=== PATIENT | male | born 1945 | race Caucasian/White ===

== ENCOUNTER 2017-03-08 18:56 | Emergency (ER) | payer OTHER ==
[~2017-03-08] VITALS: Ht 175.3 cm; Wt 75.0 kg
[2017-03-08 18:56] VITALS: Ht 175.3 cm; Wt 75.0 kg
[2017-03-08] MEDS ORDERED: LIDOCAINE 2% 20 ML UROJET SYRINGE MM ONE (19:00)
[2017-03-08] MEDS ORDERED: morphine 4 MG/ML VIAL IV STA (19:28)
[2017-03-08] MEDS ORDERED: ONDANSETRON 4 MG INJ IV STA (19:28)
[2017-03-08] MEDS ORDERED: SOD CHLORIDE 0.9% 1,000 ML IV STA (19:28)
[2017-03-08] MEDS ORDERED: TAMSULOSIN (SR) 0.4 MG CAP PO ONE (19:30)
--- NOTE | 2017-03-08 20:32 | RADRPT ---
PROCEDURE: CT Abdomen and pelvis without contrast. CLINICAL INDICATION: Abdominal pain TECHNIQUE: Routine CT scan of the abdomen and pelvis was performed on a high resolution multidetec tor scanner without intravenous contrast. One or more of the following dose reduction techniques wer e used: Automated exposure control; Adjustment of the mA and/or kV according to patient size; Use of iterative reconstruction technique. CTDI = 10 mGy. DLP = 570 mGy-cm. COMPARISON: None. FINDINGS: Lung bases: Peribronchial thickening is present suggestive of small airways disease. Suboptimally vi sualized suspected small infiltrates peripherally not well seen due to respiratory motion artifact. Liver: No focal lesions. Normal morphology and attenuation. Gallbladder: Normal appearance of the wall, no inflammatory changes. No gallstones. Normal appearance of the extrahepatic biliary tree. Pancreas: Normal morphology and attenuation. Spleen: Normal in size. Adrenal glands: Normal morphology and attenuation. Kidneys: Normal morphology. No hydronephrosis or renal calculi. Bladder: Decompressed by Stringer catheter. Prostate: Not enlarged, possibly resected. Free fluid: None. Alimentary tract: Gastric distension with fluid is present which may be secondary to gastroparesis. Moderate distension of the ascending and transverse colon up to the level of the splenic flexure whe re there appears to be possible wall thickening. Mild constipation of the remainder of the colon. Lymph nodes: Normal morphology and attenuation. Not pathologically enlarged by CT criteria. Arterial system: Normal caliber aorta. Venous system: No evidence of flow-limiting obstruction. Osseous structures: Severe degenerative changes L2-L3. Right hip arthroplasty is present. IMPRESSION: Moderate distension of the ascending and transverse colon up to the level of the splenic flexure whe re there appears to be possible wall thickening without inflammatory changes concerning for a partia lly obstructing malignancy. Gastric distension with fluid is present which may be secondary to gastroparesis. Peribronchial thickening is present suggestive of small airways disease. Suboptimally visualized orlando pected small infiltrates peripherally not well seen due to respiratory motion artifact. Chest x-ray recommended for further evaluation. RPTAT: AADD .Nelson Jones MD, MD Date Time Electronically viewed and signed by .Nelson Jones MD, MD on 03/08/2017 20:32 .Jamie
[2017-03-08] MEDS ORDERED: CIPR500T4 PO (20:56)
[2017-03-08] MEDS ORDERED: HYDR-902 PO (20:56)
[2017-03-08] MEDS ORDERED: METR500T PO (20:56)
[2017-03-08] MEDS ORDERED: TAMS-14 PO (20:56)
[2017-03-08] MEDS ORDERED: ONDA4TAB14 PO (20:56)
--- NOTE | 2017-03-08 20:58 | ERD ---
ER Documentation Chief Complaint Chief Complaint ABD PAIN HPI Patient is a 71-year-old male with diabetes who presents with abdominal pain. He says "I cannot urinate". He said that he has had this for the past few days. He was brought in by ambulance as a possible STEMI because the EKG that they did showed a possible STEMI although I did not see any sign of STEMI on their EKG. The patient has no history of prostate issues. He had a colonoscopy done on and a biopsy was taken and they are awaiting results. He has had no treatment as of yet. He denies chest pain. His pain is in the lower abdomen at the midline and he is tender to palpation. ROS All systems reviewed and are negative except as per history of present illness. Medications Home Meds Active Scripts Tamsulosin Hcl* (Flomax*) 0.4 Mg Cap.er.24h, 0.4 MG PO QPM, #30 CAP Prov:BAY ROSA MD 03/08/17 Metronidazole* (Flagyl*) 500 Mg Tablet, 500 MG PO TID for 7 Days, TAB Prov:BAY ROSA MD 03/08/17 Ciprofloxacin Hcl* (Ciprofloxacin Hcl*) 500 Mg Tablet, 500 MG PO BID for 7 Days , TAB Prov:BAY ROSA MD 03/08/17 Ondansetron (Ondansetron Odt) 4 Mg Tab.rapdis, 4 MG PO Q6H Y for NAUSEA AND/OR VOMITING, #10 TAB Prov:BAY ROSA MD 03/08/17 Hydrocodone/Acetaminophen ([place] 10-325 Tablet) 1 Each Tablet, 1 TAB PO Q6H Y for PAIN, #7 TAB Prov:BAY ROSA MD 03/08/17 PMhx/Soc History of Surgery: Yes (RIGHT HIP REPLACEMENT) Anesthesia Reaction: No Hx Neurological Disorder: No Hx Respiratory Disorders: No Hx Cardiac Disorders: No Hx Psychiatric Problems: No Hx Miscellaneous Medical Probl: Yes (IDDM) Hx Alcohol Use: Yes (DAILY) Hx Substance Use: No Hx Tobacco Use: No Smoking Status: Never smoker FmHx Family History: No diabetes Physical Exam Vitals Vital Signs Date Time Temp Pulse Resp B/P Pulse Ox O2 Delivery O2 Flow Rate FiO2 03/08/17 19:29 98.1 90 20 133/72 100 Nasal Cannula 2.0 03/08/17 18:56 98.2 99 18 139/67 100 Physical Exam Const: Moderate distress secondary to pain Head: Atraumatic Eyes: Normal Conjunctiva ENT: Normal External Ears, Nose and Mouth. Neck: Full range of motion..~ No meningismus. Resp: Clear to auscultation bilaterally Cardio: Regular rate and rhythm, no murmurs Abd: Soft, lower abdominal pain with tenderness to palpation Skin: No petechiae or rashes Back: No midline or flank tenderness Ext: No cyanosis, or edema Neur: Awake and alert Psych: Normal Mood and Affect Result Diagram: 03/08/17192903/08/171929 Results 24 hrs Laboratory Tests Test 03/08/17 19:20 03/08/17 19:30 Urine Color REX Urine Clarity SLIGHTLY CLOUDY Urine pH 7.0 Urine Specific [place] 1.024 Urine Ketones TRACEmg/dL Urine Nitrite NEGATIVEmg/dL Urine Bilirubin NEGATIVEmg/dL Urine Urobilinogen 2+mg/dL Urine Leukocyte Esterase NEGATIVELeu/ul Urine Microscopic RBC 1/HPF Urine Microscopic WBC 1/HPF Urine Amorphous Crystals FEW/HPF Urine Mucus FEW/HPF Urine Hemoglobin NEGATIVEmg/dL Urine Glucose 3+mg/dL Urine Total Protein 1+mg/dl White Blood Count 23.410^3/ul Red Blood Count 4.6510^6/ul Hemoglobin 14.7g/dl Hematocrit 40.8% Mean Corpuscular Volume 87.7fl Mean Corpuscular Hemoglobin 31.6pg Mean Corpuscular Hemoglobin Concent 36.0g/dl Red Cell Distribution Width 12.6% Platelet Count 78709^3/UL Mean Platelet Volume 10.1fl Neutrophils % 91.5% Lymphocytes % 3.5% Monocytes % 3.8% Eosinophils % 0.0% Basophils % 0.3% Nucleated Red Blood Cells % 0.0/100WBC Neutrophils # 21.410^3/ul Lymphocytes # 0.810^3/ul Monocytes # 0.910^3/ul Eosinophils # 0.010^3/ul Basophils # 0.110^3/ul Nucleated Red Blood Cells # 0.010^3/ul Sodium Level 138mmol/L Potassium Level 4.2mmol/L Chloride Level 99mmol/L Carbon Dioxide Level 23mmol/L Anion Gap 20 Blood Urea Nitrogen 31mg/dl Creatinine 0.88mg/dl Glucose Level 213mg/dl Calcium Level 10.3mg/dl Total Bilirubin 1.4mg/dl Direct Bilirubin 0.00mg/dl Indirect Bilirubin 1.4mg/dl Aspartate Amino Transf (AST/SGOT) 59IU/L Alanine Aminotransferase (ALT/SGPT) 39IU/L Alkaline Phosphatase 118IU/L Total Protein 7.6g/dl Albumin 4.6g/dl Globulin 3.00g/dl Albumin/Globulin Ratio 1.53 Lipase 19U/L Current Medications Medications (Trade) Dose Ordered Sig/Lynnette Route PRN Reason Start Time Stop Time Status Last Admin Dose Admin Lidocaine (Lidocaine 2% Urojet) 20 ml ONCE ONCE MM 03/08/17 19:00 03/08/17 19:01 DC 03/08/17 19:24 Tamsulosin HCl 0.4 mg 0.4 mg ONCE ONCE PO 03/08/17 19:30 03/08/17 19:31 DC 03/08/17 19:52 Sodium Chloride (NS) 1,000 ml @ 1,000 mls/hr Q1H STAT IV 03/08/17 19:28 03/08/17 20:27 DC 03/08/17 19:38 Morphine Sulfate (morphine) 4 mg ONCE STAT IV 03/08/17 19:28 03/08/17 19:29 DC 03/08/17 19:38 Ondansetron HCl (Zofran Inj) 4 mg ONCE STAT IV 03/08/17 19:28 03/08/17 19:29 DC 03/08/17 19:38 Procedures/MDM EKG read by me: Rate/Rhythm: Regular rate and rhythm at a rate of 99 Intervals: Normal Impression: No evidence of ischemia or arrhythmia PROCEDURE: CT Abdomen and pelvis without contrast. CLINICAL INDICATION: Abdominal pain TECHNIQUE: Routine CT scan of the abdomen and pelvis was performed on a high resolution multidetector scanner without intravenous contrast. One or more of the following dose reduction techniques were used: Automated exposure control; Adjustment of the mA and/or kV according to patient size; Use of iterative reconstruction technique. CTDI = 10 mGy. DLP = 570 mGy-cm. COMPARISON: None. FINDINGS: Lung bases: Peribronchial thickening is present suggestive of small airways disease. Suboptimally visualized suspected small infiltrates peripherally not well seen due to respiratory motion artifact. Liver: No focal lesions. Normal morphology and attenuation. Gallbladder: Normal appearance of the wall, no inflammatory changes. No gallstones. Normal appearance of the extrahepatic biliary tree. Pancreas: Normal morphology and attenuation. Spleen: Normal in size. Adrenal glands: Normal morphology and attenuation. Kidneys: Normal morphology. No hydronephrosis or renal calculi. Bladder: Decompressed by Stringer catheter. Prostate: Not enlarged, possibly resected. Free fluid: None. Alimentary tract: Gastric distension with fluid is present which may be secondary to gastroparesis. Moderate distension of the ascending and transverse colon up to the level of the splenic flexure where there appears to be possible wall thickening. Mild constipation of the remainder of the colon. Lymph nodes: Normal morphology and attenuation. Not pathologically enlarged by CT criteria. Arterial system: Normal caliber aorta. Venous system: No evidence of flow-limiting obstruction. Osseous structures: Severe degenerative changes L2-L3. Right hip arthroplasty is present. IMPRESSION: Moderate distension of the ascending and transverse colon up to the level of the splenic flexure where there appears to be possible wall thickening without inflammatory changes concerning for a partially obstructing malignancy. Gastric distension with fluid is present which may be secondary to gastroparesis. Peribronchial thickening is present suggestive of small airways disease. Suboptimally visualized suspected small infiltrates peripherally not well seen due to respiratory motion artifact. Chest x-ray recommended for further evaluation. RPTAT: AADD .Nelson Jones MD, Date Time Electronically viewed and signed by .Nelson Jones MD, on 03/08/2017 20:32 Patient is a 71-year-old male who presents with abdominal pain and urinary retention. I did EKG in the [facility] department which was negative for STEMI. I reviewed the environmental services specialist EKGs which also were normal and I do not see signs of STEMI and the patient denies chest pain. I doubt STEMI. The patient did have urinary retention so a Stringer catheter was placed. He feels better. However he still had persistent abdominal pain so I did laboratory studies and a CT scan of his abdomen and pelvis. He has an elevated white blood cell count 23.4. The patient has no sign of urinary infection. He told me that his colonoscopy showed diverticulitis but he did not get treated with antibiotics. Therefore I will treat him with Cipro, Flagyl, [place], Zofran, and Flomax. He will need follow-up with his primary doctor as well as Dr. Okeefe from urology or the urologist of his choice. He can follow-up within 24-48 hours. He can return for any worsening symptoms. Departure Diagnosis: Primary Impression: Urinary retention Additional Impressions: Diverticulitis Abdominal pain Abdominal location: lower abdomen, unspecified Qualified Code: R10.30 - Lower abdominal pain Condition: Fair Patient Instructions: Abdominal Pain, Diverticulitis, Urinary Retention, Male Referrals: LORI OKEEFE MD Additional Instructions: SPECIALIST: YOU HAVE A MEDICAL CONDITION WHICH REQUIRES YOU TO SEE A SPECIALIST WITHIN THE NEXT 1-2 DAYS. PLEASE FOLLOW UP WITH YOUR PRIMARY PHYSICIAN FOR REFFERAL.IF YOU DO NOT HAVE A PRIMARY CARE PHYSICIAN AND/OR YOU CAN NOT AFFORD TO SEE A PHYSICIAN THE FOLLOWING RESOURCES HAVE BEEN SUPPLIED TO YOU. IT IS YOUR RESPONSIBILITY TO BE SEEN BY THE SPECIALIST BAY ROSA MD Mar 08, 2017 20:58
[2017-03-08 22:19] VITALS: BP 116/56; PULSE 73; RESP 18; TEMP 98.5
== END 2017-03-08 22:20 | disposition home or self-care (01) ==
LOC: E/R 18:56
DX: K57.32 Diverticulitis of large intestine without perforation or abscess without bleeding (principal); R33.9 Retention of urine, unspecified; E11.9 Type 2 diabetes mellitus without complications; R07.9 Chest pain, unspecified; Z96.641 Presence of right artificial hip joint
CPT/HCPCS: 36415; 74176; 80053; 81001; 83690; 85025; 87086; 93005; 96374; 96375; 99285; J2270; J2405; J7030

== ENCOUNTER 2017-03-10 14:46 | Emergency (ER) | payer OTHER ==
[~2017-03-10] VITALS: Wt 68.2 kg
[~2017-03-10 14:46] MED LIST: CIPR500T4 PO; HYDR-902 PO; METR500T PO; ONDA4TAB14 PO; TAMS-14 PO
--- NOTE | 2017-03-10 16:17 | EN ---
Date/Time of Note Date/Time of Note DATE: 03/10/17 TIME: 16:15 ER Progress Note note-agree with detailed history and physical of mid-level provider. [id number]-old male presents with a history of urinary retention. Is here for catheter removal. Patient is being treated for diverticulitis with Cipro and Flagyl. Fever no vomiting pain improved. Objective-abdomen soft nontender without rebound. Assessment-diverticulitis partially treated. Urinary retention. The removed her patient was able to urinate. Plan-patient is to continue antibiotics and follow with primary doctor will be given return precautions regarding abdominal pain, urinary retention, and intra- abdominal infection. CATHLEEN CARNES MD Mar 10, 2017 16:16
[2017-03-10 16:46] LABS: ADD UMIC YES; UR ASCORBIC ACID 40 mg/dL (NEGATIVE); UR BACTERIA FEW /HPF (NONE SEEN); UR BILIRUBIN (Dip) NEGATIVE (NEGATIVE); UR BLOOD (Dip) 2+ mg/dL (NEGATIVE); UR CLARITY CLEAR (CLEAR); UR COLOR AMBER (YELLOW); UR GLUCOSE (Dip) NEGATIVE (NEGATIVE); UR KETONES (Dip) TRACE mg/dL (NEGATIVE); UR LEUKOCYTE ESTERASE (Dip) 2+ Leu/ul (NEGATIVE); UR MUCUS MANY /HPF (NONE SEEN); UR NITRITE (Dip) NEGATIVE (NEGATIVE); UR RBC > 182 /HPF (0-5); UR SPECIFIC GRAVITY (Dip) 1.029 (1.003-1.030); UR TOTAL PROTEIN (Dip) 2+ mg/dl (NEGATIVE); UR UROBILINOGEN (Dip) 1+ mg/dL (NEGATIVE)
[2017-03-10] MEDS ORDERED: CIPR500T4 PO (17:02)
--- NOTE | 2017-03-10 17:08 | ERD ---
ER Documentation Chief Complaint Chief Complaint wants urinary cath removed. HPI 71-year-old male patient with a past medical history of diabetes presents to the ED for a removal of his Stringer catheter. States that he was here 2 days ago due to abdominal pain after receiving a colonoscopy. States that he was diagnosed with diverticulitis on the colonoscopy but did not receive antibiotics therefore he received antibiotic prescriptions here in the ED. States that his abdominal pain has improved. Denies any vomiting, diarrhea, chest pain, shortness of breath, fever, chills, abdominal pain, dysuria, urgency , frequency, hematuria. She reports that the Stringer catheter is slightly leaking. States that he feels like he can urinate. Reports that he has not followed up with the urologist. ROS All systems reviewed and are negative except as per history of present illness. Medications Home Meds Active Scripts Ciprofloxacin Hcl* (Ciprofloxacin Hcl*) 500 Mg Tablet, 500 MG PO BID for 10 Days , TAB Prov:ROMA DEL VALLE PA-C 03/10/17 Tamsulosin Hcl* (Flomax*) 0.4 Mg Cap.er.24h, 0.4 MG PO QPM, #30 CAP Prov:BAY ROSA MD 03/08/17 Metronidazole* (Flagyl*) 500 Mg Tablet, 500 MG PO TID for 7 Days, TAB Prov:BAY ROSA MD 03/08/17 Ciprofloxacin Hcl* (Ciprofloxacin Hcl*) 500 Mg Tablet, 500 MG PO BID for 7 Days , TAB Prov:BAY ROSA MD 03/08/17 Ondansetron (Ondansetron Odt) 4 Mg Tab.rapdis, 4 MG PO Q6H Y for NAUSEA AND/OR VOMITING, #10 TAB Prov:BAY ROSA MD 03/08/17 Hydrocodone/Acetaminophen ([place] 10-325 Tablet) 1 Each Tablet, 1 TAB PO Q6H Y for PAIN, #7 TAB Prov:BAY ROSA MD 03/08/17 PMhx/Soc History of Surgery: Yes (RIGHT HIP REPLACEMENT) Anesthesia Reaction: No Hx Neurological Disorder: No Hx Respiratory Disorders: No Hx Cardiac Disorders: No Hx Psychiatric Problems: No Hx Miscellaneous Medical Probl: Yes (IDDM) Hx Alcohol Use: Yes (DAILY) Hx Substance Use: No Hx Tobacco Use: No Smoking Status: Never smoker Physical Exam Vitals Vital Signs Date Time Temp Pulse Resp B/P Pulse Ox O2 Delivery O2 Flow Rate FiO2 03/10/17 14:49 98.5 109 20 130/58 100 Physical Exam Const: [id number], well-nourished. In no acute distress. Head: Atraumatic, normocephalic Eyes: Normal Conjunctiva without injection. No purulent discharge. ENT: Normal external ear, nose. Moist oropharynx without tonsillar exudates. Non -erythematous pharynx. Uvula midline. No drooling. No trismus. Neck: No cervical midline tenderness. Full range of motion. No meningismus. No cervical lymphadenopathy. No JVD. Resp: Clear to auscultation bilaterally. No wheezing, rhonchi, rales, or crackles. No accessory muscle use. No retractions. Cardio: Regular rate and rhythm. No murmurs, rubs or gallops. Abd: Soft, nontender, non distended. Normal bowel sounds. No palpable masses. No rebound tenderness. No guarding. Negative McBurney's point. Negative psoas sign. Negative obturator sign. : Normal external genitalia with Stringer catheter noted. No signs of phimosis, paraphimosis. No erythema or edema. No warmth to touch. No rashes. Skin: No petechiae or rashes Back: No midline tenderness. No CVA tenderness. Ext: No cyanosis, or edema. Neur: Awake and alert. Normal gait. Normal coordination. Psych: Normal Mood and Affect Results 24 hrs Laboratory Tests Test 03/10/17 16:01 Urine Color REX Urine Clarity CLEAR Urine pH 5.0 Urine Specific [place] 1.029 Urine Ketones TRACEmg/dL Urine Nitrite NEGATIVEmg/dL Urine Bilirubin NEGATIVEmg/dL Urine Urobilinogen 1+mg/dL Urine Leukocyte Esterase 2+Sloane/ul Urine Microscopic RBC > 182/HPF Urine Microscopic WBC 16/HPF Urine Bacteria FEW/HPF Urine Mucus MANY/HPF Urine Hemoglobin 2+mg/dL Urine Glucose NEGATIVEmg/dL Urine Total Protein 2+mg/dl Procedures/MDM 71-year-old male patient with a past medical history of diabetes and diverticulosis presents to the ED and his Stringer catheter removed. Patient is afebrile and nontoxic-appearing. Patient has normal vital signs. Stringer catheter was removed by nursing staff without difficulty. Patient was able to urinate without difficulty. Urinalysis shows 2+ leukocyte esterase and hematuria. Patient has not filled his prescription for ciprofloxacin. He has is however taking his Flagyl. I strictly instructed patient that since he does have a urinary infection, he can replace the ciprofloxacin for 10 days for his urinary tract infection and should follow-up with his urologist. Low suspicion for testicular torsion, gastritis, GERD, peptic ulcer disease, cholecystitis, choledocholithiasis, cholangitis, pancreatitis, appendicitis, bowel obstruction , ileus, volvulus, nephrolithiasis, pyelonephritis, hepatitis, perforated viscus , diverticulitis, abdominal hernia, acute abdomen, mesenteric ischemia or other emergent conditions. This was discussed with my supervising physician Dr. Black who agreed with the management and discharge plan. Discharge medications: Ciprofloxacin. Continue taking Flagyl Follow up with primary care physician in 1-2 days. Instructed patient to return to the ED sooner for any worsening symptoms. Patient's questions were answered. Patient understood and agreed with discharge plan. Patient discharged stable. Departure Diagnosis: Primary Impression: Encounter for Stringer catheter removal Condition: Stable Patient Instructions: Stringer Catheter Removal, Urinary Tract Infections in Men Referrals: [facility] YOU HAVE RECEIVED A MEDICAL SCREENING EXAM AND THE RESULTS INDICATE THAT YOU DO NOT HAVE A CONDITION THAT REQUIRES URGENT TREATMENT IN THE EMERGENCY DEPARTMENT. FURTHER EVALUATION AND TREATMENT OF YOUR CONDITION CAN WAIT UNTIL YOU ARE SEEN IN YOUR DOCTORS OFFICE WITHIN THE NEXT 1-2 DAYS. IT IS YOUR RESPONSIBILITY TO MAKE AN APPOINTMENT FOR FOLOW-UP CARE. IF YOU HAVE A PRIMARY DOCTOR --you should call your primary doctor and schedule an appointment IF YOU DO NOT HAVE A PRIMARY DOCTOR YOU CAN CALL OUR PHYSICIAN REFERRAL HOTLINE AT IF YOU CAN NOT AFFORD TO SEE A PHYSICIAN YOU CAN CHOSE FROM THE FOLLOWING [facility] [address] [facility]. [place] [address] [facility] [facility] [address] [facility] [facility] [address] [facility]. [facility] [address] [facility]. [facility]. [address] [facility]. [facility] YOU HAVE RECEIVED A MEDICAL SCREENING EXAM AND THE RESULTS INDICATE THAT YOU DO NOT HAVE A CONDITION THAT REQUIRES URGENT TREATMENT IN THE EMERGENCY DEPARTMENT. FURTHER EVALUATION AND TREATMENT OF YOUR CONDITION CAN WAIT UNTIL YOU ARE SEEN IN YOUR DOCTORS OFFICE WITHIN THE NEXT 1-2 DAYS. IT IS YOUR RESPONSIBILITY TO MAKE AN APPOINTMENT FOR FOLOW-UP CARE. IF YOU HAVE A PRIMARY DOCTOR --you should call your primary doctor and schedule and appointment IF YOU DO NOT HAVE A PRIMARY DOCTOR YOU CAN CALL OUR PHYSICIAN REFERRAL HOTLINE AT . IF YOU CAN NOT AFFORD TO SEE A PHYSICIAN YOU CAN CHOSE FROM THE FOLLOWING [facility] INSTITUTIONS: [facility] [address] [place] [address] [facility] [address] [place], [place] [id number] [place] [address] [address] [place] [address] [facility] URGENT [facility]/SPECIALTIES Additional Instructions: Please fill the prescription of Ciprofloxacin and complete the course of of antibitoics. Call your primary care doctor TOMORROW for an appointment during the next 1-2 days for a referral to see a urologist for further care and treatment. See the doctor sooner or return here if your condition worsens before your appointment time. ROMA DEL VALLE PA-C Mar 10, 2017 17:08
== END 2017-03-10 17:07 | disposition home or self-care (01) ==
LOC: FTE 14:46
DX: Z46.6 Encounter for fitting and adjustment of urinary device (principal); E11.9 Type 2 diabetes mellitus without complications; Z96.641 Presence of right artificial hip joint
CPT/HCPCS: 81001; 87086; 99283